=== PATIENT | female | born 1940 | race Caucasian/White ===

== ENCOUNTER 2019-03-15 06:54 | Outpatient (CLI) | payer MEDICARE, SELFPAY ==
--- NOTE | 2019-03-15 08:15 | MERGEMPI_ITS ---
*[facility]* *[facility]* [address] [place] [address] Myocardial Perfusion Imaging - SPECT Regadenoson Date of study: 03/15/2019 *PATIENT PRESENTATION* Height: 154.9cm (61in) Blood Pressure: Weight: 92.3kg (203lb) BSA: 2.04m^2 Referring physician: Christian Resendiz Ordering physician: Arlette Mittal Impressions: Study suggests recent inferior myocardial infarction with mabel-infarct ischemia, with small to moderate overall ischemia in the territory of the right coronary or the left circumflex coronary arteries. Summary: 1. Myocardial perfusion imaging: There is a large sized, severely intense, partially reversible defect involving the inferior, inferolateral, and anterolateral wall(s). This suggests large myocardial infarction and small ischemia in the distribution of right coronary artery or the left circumflex coronary artery. 2. The calculated left ventricular ejection fraction after stress: 41%. LV global systolic function is mild to moderately reduced. There is dyskinesis involving the inferior wall(s) of the left ventricle. 3. Stress ECG conclusions: The stress ECG is positive. 4. Baseline ECG: There was a recentinferior myocardial infarction. Recommendations: Cardiac catheterization should be performed in 24hr, in order to evaluate coronary artery disease. This procedure has been arranged and discussed with the patient. Indication: R07.9. History: REASON FOR VISIT: PT REPORTS SHE IS HERE FOR HIGH BLOOD PRESSURES AND EKG CHANGES NOTED BY HER PCP, DR Ankita MITTAL IN IN HER [facility] OFFICE. UPON FURTHER QUESTIONING, PT REPORTS A 7 OUT OF 10 LEFT CHEST PAIN AND PAIN INBETWEEN HER SHOULDER BLADES. SHE STATES THIS PAIN HAS BEEN CONSTANT ALL MORNING AND SHE ALSO FELT SOME NAUSEA WITH HER CHEST PAINS WHILE IN THE WAITING ROOM THIS AM. SHE DESCRIBES IT A ACHE OR PRESSURE. SHE DENIES SHORTNES OF BREATH. SHE STATES HER CHEST PAINS HAVE STARTED ABOUT 2 WEEKS AGO. PMH: Asthma. Risk factors: Family history of coronary artery disease. Hypertension. Obesity. Dyslipidemia. ALLERGIES: AMOXICILLIN. ASPIRIN. LISINOPRIL. NORVASC. MEDICATIONS: ASPIRIN 81 MG DAILY. CLINDAMYCIN HCL 150 MG PRIOR TO DENTAL WORK. FLOVENT HFA 2 PUFFS DAILY. PRN. HYDROCHLOROTHIAZIDE 25 MG DAILY. LOSARTAN 25 MG DAILY. MECLIZINE 25 MG TID. FEXOFENADINE 180 MG DAILY. CELEBREX 200 MG DAILY. MELOXICAM 15 MG DAILY. OMEPRAZOLE 20 MG TAKE 2 CAPSULES AT BEDTIME. PRESERVISION LUTEIN 1 CAPSULE TWICE A DAY. TUMS E-X 750 MG DAILY PRN. VIACTIV 1 TAB DAILY. XOPENEX HFA 2 PUFFS DAILY PRN. Imaging Technique: Protocol: Regadenoson. Acquisition: Gated SPECT; 1 day - rest/stress. The patient was imaged in the supine position. Attenuation correction used. Isotope administration: - Rest. Tc[99m]-sestamibi. Dose: 10.5mCi. Injection time: 08:15 AM. Injection to stress time: 00:45. - Stress. Tc[99m]-sestamibi. Dose: 30mCi. Injection time: 11:15 AM. 1-2 min before end of exercise Baseline ECG: SINUS RHYTHM. HR [address] ELEVATIONS IN LEADS III. Normal sinus rhythm. Q waves in II, III and aVF. ST elevation in II, III and aVF, consistent with injury. There was a recentinferior myocardial infarction. Stress protocol: +--------+---+ + + !Stage !HR !BP (mmHg) !Comments ! +--------+---+ + + !Baseline!93 !138/80 (99)! ! +--------+---+ + + !1 min !112!144/60 (88)!Inject Regadenoson.! +--------+---+ + + !3 min !112!144/72 (96)! ! +--------+---+ + + !6 min !98 !136/74 (95)! ! +--------+---+ + + !10 min !110!138/80 (99)! ! +--------+---+ + + * Stress results: The rate-pressure product for the peak heart rate and blood pressure was 51069ki Hg/min. Stress ECG: STRESS TEST ENDED IN 14 MINUTES & 49 SECONDS. NORMAL HEART RATE AND BLOOD PRESSURE RESPONSE TO LEXISCAN INJECTION OCCASIONAL PVCs ST SEGMENT ELEVATION IN LEAD III PRIOR TO LEXISCAN INJECTION, DR RESENDIZ UPDATED. CHEST PAIN 7 OUT OF 10 PRIOR TO LEXISCAN INJECTION, DR RESENDIZ UPDATED. ST SEGMENT ELEVATION MORE PRONOUNCED IN LEAD III AND NOW NOTED IN ALL INFERIOR LEADS (II, III & AVF) 3-6 [address]ES [address] L[address] INJECTION. [address] SEGMENT DEPRESSIONS NOTED IN LEADS AVL & V2 MOST PRONOUNCED BY 6 MINUTES POST LEXISCAN. CHEST PAIN INCREASED TO A 10 OUT OF 10 BY 8 MINUTES POST LEXISCAN INJECTION. NITRO 1 TAB SUB LINGUAL GIVEN. DR RESENDIZ UPDATED. CHEST PAIN SUBSIDING, PT REPORTS ITS DOWN TO A 5 OUT OF 10 SHE LOCATES CENTER TO LEFT CHEST AND AXILLA REGION. DR RESENDIZ UPDATED, PT SENT BACK FOR 2ND IMAGING, PER DR RESENDIZ. The stress ECG is positive. Myocardial perfusion: Imaging information: gated. The image quality was good. Left ventricular size is normal. Right ventricular size is normal. There is a large sized, severely intense, partially reversible defect involving the inferior, inferolateral, and anterolateral wall(s). This suggests large myocardial infarction and small ischemia in the distribution of right coronary artery or the left circumflex coronary artery. Ventricular Function (Wall Motion): The calculated left ventricular ejection fraction after stress: 41%. LV global systolic function is mild to moderately reduced. There is dyskinesis involving the inferior wall(s) of the left ventricle. Right ventricular function is normal. Study data: Christian Resendiz MD supervised and was readily available during the procedure. This study was interpreted by [facility]. Study status: Routine. Consent: The risks, benefits, and alternatives to the procedure were explained to the patient and informed consent was obtained. Procedure: Initial setup. A baseline ECG was recorded. Surface ECG leads and manual cuff blood pressure measurements were monitored. Heart sounds: Normal. Lung sounds: Normal. Regadenoson stress test. Stress testing was performed, with regadenoson by intravenous bolus, for a total dose of 0.4mgover 10.00sec, followed by a 5ml saline flush. The infusion was terminated due to per protocol. Study completion: All catheters inserted during the procedure were removed. The patient tolerated the procedure well and was discharged from the lab. Discharge: The patient left the laboratory in stable condition. Birthdate: Patient birthdate: 1940. Sex: Gender: female. Study date: Study date: 03/15/2019. Study time: 00:01 AM. Signature Documentation: - The imaging portion of this study was interpreted by [facility] Christian Resendiz MD. - The Stress ECG portion of this study was interpreted by Christian Resendiz MD. Electronically signed by Christian Resendiz 03/15/2019 13:06
[2019-03-15] MEDS: Regadenoson 0.4 MG/5 ML SYR IVP (11:30)
== END 2019-03-15 07:14 ==
PROVIDERS: PCP Internal Medicine; Visit Provider Internal Medicine
DX: R07.9 Chest pain, unspecified (principal); R94.31 Abnormal electrocardiogram [ECG] [EKG]; I25.2 Old myocardial infarction; I10 Essential (primary) hypertension; Z82.49 Family history of ischemic heart disease and other diseases of the circulatory system
CPT/HCPCS: 36415; 78452; 80053; 93005; 93016; 93018; 96365; 96366; 96368; 96375; 96376; 99205; 99285; 71045; 83735; 83880; 84484; 85025; 85610; 85730; 93017; 99284; J2060; J2785

== ENCOUNTER 2019-03-15 13:04 | Emergency (ER) | payer MEDICARE, SELFPAY ==
[2019-03-15] VITALS (69 sets, daily range): BP systolic 87–158; BP diastolic 44–80; PULSE 49–99; RESP 15–26; TEMP 36.4; O2SAT 89–99
--- NOTE | 2019-03-15 13:11 | W.ED.GENAD ---
Discharge Plan Disposition Patient Disposition: [facility] Condition: Serious Discharge Details Chief Complaint: Chest Pain Clinical Impression: Acute coronary syndrome Primary Care Provider: DARLING JONES ED Provider: Eb Salazar Home Meds and New Rx's Prescriptions: No Action fexofenadine 180 MG tablet 180 mg PO DAILY RF: 0 omeprazole 40 MG capsule,delayed release(DR/EC) 40 mg PO DAILY RF: 0 hydrochlorothiazide 25 MG tablet 25 mg PO DAILY RF: 0 albuterol sulfate 8.5 GM HFA aerosol inhaler 2 puff Inhalation Q6H PRN RF: 0 Flovent HFA 12 GM HFA aerosol inhaler 110 mcg Inhalation BID RF: 0 calcium carb and citrate-vitD3 1 EACH tablet extended release 1 ea PO DAILY RF: 0 losartan 50 mg Tablet 50 mg PO DAILY AM RF: 0 fluticasone propionate 50 mcg/actuation [place],Suspension 2 spray Intranasal BID RF: 0 Medical Decision Making 79-year-old female referred from outpatient nuclear stress test by Dr. Resendiz due to acute reversible ischemic changes and ongoing chest pain during the test. She has a history of hypertension and hyperlipidemia, and reports 2 weeks of intermittent episodes of substernal chest discomfort that has been occurring at rest. She arrives with ongoing discomfort, positive EKG changes. She is placed on a registered travel nurse, IV access established, patient referred for laboratory testing, chest x-ray, given 162 mg aspirin, nitroglycerin drip initiated for ongoing discomfort. After review of x-ray, patient started on heparin bolus and drip. Plavix given Screening chest x-ray without acute finding per Dr. Pitt. Laboratory analysis does reveal positive troponin of 3.69. Labs otherwise notable for creatinine of 1.4. Her magnesium is low at 1.1 and will be supplemented. We will ask that perfusion scan be uploaded to [facility]. Case discussed with on-call cardiology Dr. Helton, and patient accepted in transfer. MYOCARDIAL PERFUSION SCAN: Impressions: Study suggests recent inferior myocardial infarction with mabel-infarct ischemia, with small to moderate overall ischemia in the territory of the right coronary or the left circumflex coronary arteries. Summary: 1. Myocardial perfusion imaging: There is a large sized, severely intense, partially reversible defect involving the inferior, inferolateral, and anterolateral wall(s). This suggests large myocardial infarction and small ischemia in the distribution of right coronary artery or the left circumflex coronary artery. 2. The calculated left ventricular ejection fraction after stress: 41%. LV global systolic function is mild to moderately reduced. There is dyskinesis involving the inferior wall(s) of the left ventricle. 3. Stress ECG conclusions: The stress ECG is positive. 4. Baseline ECG: There was a recentinferior myocardial infarction. Recommendations: Cardiac catheterization should be performed in 24hr, in order to evaluate coronary artery disease. This procedure has been arranged and discussed with the patient. Lab Data Lab results reviewed: Yes I reviewed the patient's lab results. Laboratory Results - last 24 hr 03/15/19 03/15/19 03/15/19 13:17 13:17 13:17 WBC 7.76 RBC 4.18 Hgb 12.9 Hct 39.3 MCV 94.0 MCH 30.9 MCHC 32.8 RDW 13.4 Plt Count 303 MPV 10.0 Immature Gran % 0.3 Neutrophils % 72.8 Lymphocytes % 17.7 Monocytes % 8.2 Eosinophils % 0.6 Basophils % 0.4 Absolute Neutrophils 5.65 Absolute Lymphocytes 1.37 Absolute Monocytes 0.64 Absolute Eosinophils 0.05 Absolute Basophils 0.03 PT 9.3 INR 0.9 APTT 24.5 Sodium 140 Potassium 3.1 L Chloride 100 Carbon Dioxide 31.3 Anion Gap 8.7 BUN 26 H Creatinine 1.44 H Estimated GFR/1.73 m2 35.11 Glucose 133 H Calcium 10.6 H Magnesium 1.1 L Total Bilirubin 0.5 AST 48 H ALT 26 Alkaline Phosphatase 69 Troponin I 3.69 H* NT-Pro-B Natriuret Pep 2186 H Total Protein 8.0 Albumin 3.8 ECG Data Attestation: I personally reviewed and interpreted this ECG (s) as follows: Interpretation: Normal sinus rhythm with a rate of 91, there is inferior ST segment elevation with ST segment depression in leads I and aVL EKG #2 obtained at 1413 hrs. normal sinus rhythm with a rate of 76, the QRS is narrow, there is [address] segment elevation with T wave inversions. Subtle ST depressions in 1 and aVL HPI General Mode of arrival: ambulatory. Date/Time Provider Initiated Documentation: 03/15/19 13:05. Limitations to Documentation: no limitations. Information obtained by: patient. History of Present Illness 79 year old F presents to the emergency department with the chief complaint of Referred from outpatient nuclear stress test that was + and with chest pain, described as moderate, Quality is described as dull, and is localized to the chest. Patient started experiencing this minute(s) and it has been intermittent. No relieving factors improve symptom(s), No exacerbating factors reported . Patient notes other (Feels anxious). Patient did receive the following treatments prior to arrival, other (Received a single nitroglycerin prior to stress test) Related Data Home Medications Medication Instructions Recorded Confirmed albuterol sulfate 2 puff INHALATION Q6H PRN inhaler 03/12/15 03/15/19 NS calcium carb and citrate-vitD3 1 ea PO DAILY NS 03/12/15 03/15/19 fexofenadine 180 mg PO DAILY tab-cap NS 03/12/15 03/15/19 fluticasone propionate [Flovent 110 mcg INHALATION BID inhaler NS 03/12/15 03/15/19 110mcg] hydrochlorothiazide 25 mg PO DAILY tab-cap NS 03/12/15 03/15/19 omeprazole 40 mg PO DAILY tab-cap NS 03/12/15 03/15/19 fluticasone propionate 2 spray INTRANASAL BID 03/15/19 03/15/19 losartan 50 mg PO DAILY AM 03/15/19 03/15/19 Allergies Allergy/AdvReac Type Severity Reaction Status Date / Time amlodipine besylate Allergy Unverified 03/15/19 13:24 [From [facility]] amoxicillin Allergy Unverified 03/15/19 13:24 lisinopril Allergy Unverified 03/15/19 13:24 Review of Systems Review of Systems 8 systems reviewed and otherwise negative [facility] Medical History Asthma Atypical migraine GERD (gastroesophageal reflux disease) Goiter Hyperlipidemia Hypertension Insomnia Macular degeneration Social History Smoking/Tobacco Use Status: Never Substance use type: does not use Do you feel safe at home: Yes Do you feel safe in your relationship?: Yes Exam Narrative Exam Narrative: GEN: awake, alert, oriented 3. Pleasant, well groomed, interactive. HEAD: Normocephalic, atraumatic ENT: Mucous membranes moist, oropharynx unremarkable, External ear exam unremarkable EYES: PERRL, EOMI NECK: Full ROM, no JOAQUINA, no menigismus CHEST/RESP: Nontender, clear to auscultation bilateral, no wheeze/rhonchi/rales CARDIOVASCULAR: RRR, no murmur, rub peggy. 2+ Rad pulse bilateral ABDOMEN: Soft, nontender, no mass. +Bowel sounds EXT: Full ROM, no edema, no rash Neuro: Grossly normal neurologic exam, conversant, interactive. Psych: Speech fluent, thoughts congruent, affect normal
--- NOTE | 2019-03-15 13:14 | ED.GENADUL_ITS ---
Discharge Plan Disposition Patient Disposition: [facility] Condition: Serious Discharge Details Chief Complaint: Chest Pain Clinical Impression: Acute coronary syndrome Primary Care Provider: DARLING JONES ED Provider: Eb Salazar Home Meds and New Rx's Prescriptions: No Action fexofenadine 180 MG tablet 180 mg PO DAILY RF: 0 omeprazole 40 MG capsule,delayed release(DR/EC) 40 mg PO DAILY RF: 0 hydrochlorothiazide 25 MG tablet 25 mg PO DAILY RF: 0 albuterol sulfate 8.5 GM HFA aerosol inhaler 2 puff Inhalation Q6H PRN RF: 0 Flovent HFA 12 GM HFA aerosol inhaler 110 mcg Inhalation BID RF: 0 calcium carb and citrate-vitD3 1 EACH tablet extended release 1 ea PO DAILY RF: 0 losartan 50 mg Tablet 50 mg PO DAILY AM RF: 0 fluticasone propionate 50 mcg/actuation [place],Suspension 2 spray Intranasal BID RF: 0 Medical Decision Making 79-year-old female referred from outpatient nuclear stress test by Dr. Resendiz due to acute reversible ischemic changes and ongoing chest pain during the test. She has a history of hypertension and hyperlipidemia, and reports 2 weeks of intermittent episodes of substernal chest discomfort that has been occurring at rest. She arrives with ongoing discomfort, positive EKG changes. She is placed on a clay transporter, IV access established, patient referred for laboratory testing, chest x-ray, given 162 mg aspirin, nitroglycerin drip initiated for ongoing discomfort. After review of x-ray, patient started on heparin bolus and drip. Plavix given Screening chest x-ray without acute finding per Dr. Pitt. Laboratory analysis does reveal positive troponin of 3.69. Labs otherwise notable for creatinine of 1.4. Her magnesium is low at 1.1 and will be supplemented. We will ask that perfusion scan be uploaded to [facility]. Case discussed with on-call cardiology Dr. Helton, and patient accepted in transfer. MYOCARDIAL PERFUSION SCAN: Impressions: Study suggests recent inferior myocardial infarction with mabel-infarct ischemia, with small to moderate overall ischemia in the territory of the right coronary or the left circumflex coronary arteries. Summary: 1. Myocardial perfusion imaging: There is a large sized, severely intense, partially reversible defect involving the inferior, inferolateral, and anterolateral wall(s). This suggests large myocardial infarction and small ischemia in the distribution of right coronary artery or the left circumflex coronary artery. 2. The calculated left ventricular ejection fraction after stress: 41%. LV global systolic function is mild to moderately reduced. There is dyskinesis involving the inferior wall(s) of the left ventricle. 3. Stress ECG conclusions: The stress ECG is positive. 4. Baseline ECG: There was a recentinferior myocardial infarction. Recommendations: Cardiac catheterization should be performed in 24hr, in order to evaluate coronary artery disease. This procedure has been arranged and discussed with the patient. Lab Data Lab results reviewed: Yes I reviewed the patient's lab results. Laboratory Results - last 24 hr 03/15/19 03/15/19 03/15/19 13:17 13:17 13:17 WBC 7.76 RBC 4.18 Hgb 12.9 Hct 39.3 MCV 94.0 MCH 30.9 MCHC 32.8 RDW 13.4 Plt Count 303 MPV 10.0 Immature Gran % 0.3 Neutrophils % 72.8 Lymphocytes % 17.7 Monocytes % 8.2 Eosinophils % 0.6 Basophils % 0.4 Absolute Neutrophils 5.65 Absolute Lymphocytes 1.37 Absolute Monocytes 0.64 Absolute Eosinophils 0.05 Absolute Basophils 0.03 PT 9.3 INR 0.9 APTT 24.5 Sodium 140 Potassium 3.1 L Chloride 100 Carbon Dioxide 31.3 Anion Gap 8.7 BUN 26 H Creatinine 1.44 H Estimated GFR/1.73 m2 35.11 Glucose 133 H Calcium 10.6 H Magnesium 1.1 L Total Bilirubin 0.5 AST 48 H ALT 26 Alkaline Phosphatase 69 Troponin I 3.69 H* NT-Pro-B Natriuret Pep 2186 H Total Protein 8.0 Albumin 3.8 ECG Data Attestation: I personally reviewed and interpreted this ECG (s) as follows: Interpretation: Normal sinus rhythm with a rate of 91, there is inferior ST segment elevation with ST segment depression in leads I and aVL EKG #2 obtained at 1413 hrs. normal sinus rhythm with a rate of 76, the QRS is narrow, there is [address] segment elevation with T wave inversions. Subtle ST depressions in 1 and aVL HPI General Mode of arrival: ambulatory . Date/Time Provider Initiated Documentation: 03/15/19 13:05 . Limitations to Documentation: no limitations . Information obtained by: patient . History of Present Illness 79 year old F presents to the emergency department with the chief complaint of Referred from outpatient nuclear stress test that was + and with chest pain, described as moderate, Quality is described as dull, and is localized to the chest. Patient started experiencing this minute(s) and it has been intermittent. No relieving factors improve symptom(s), No exacerbating factors reported . Patient notes other (Feels anxious). Patient did receive the following treatments prior to arrival, other (Received a single nitroglycerin prior to stress test) Related Data Home Medications Medication Instructions Recorded Confirmed albuterol sulfate 2 puff INHALATION Q6H PRN inhaler 03/12/15 03/15/19 NS calcium carb and citrate-vitD3 1 ea PO DAILY NS 03/12/15 03/15/19 fexofenadine 180 mg PO DAILY tab-cap NS 03/12/15 03/15/19 fluticasone propionate [Flovent 110 mcg INHALATION BID inhaler NS 03/12/15 03/15/19 110mcg] hydrochlorothiazide 25 mg PO DAILY tab-cap NS 03/12/15 03/15/19 omeprazole 40 mg PO DAILY tab-cap NS 03/12/15 03/15/19 fluticasone propionate 2 spray INTRANASAL BID 03/15/19 03/15/19 losartan 50 mg PO DAILY AM 03/15/19 03/15/19 Allergies Allergy/AdvReac Type Severity Reaction Status Date / Time amlodipine besylate Allergy Unverified 03/15/19 13:24 [From [facility]] amoxicillin Allergy Unverified 03/15/19 13:24 lisinopril Allergy Unverified 03/15/19 13:24 Review of Systems Review of Systems 8 systems reviewed and otherwise negative [facility] Medical History Asthma Atypical migraine GERD (gastroesophageal reflux disease) Goiter Hyperlipidemia Hypertension Insomnia Macular degeneration Social History Smoking/Tobacco Use Status: Never Substance use type: does not use Do you feel safe at home: Yes Do you feel safe in your relationship?: Yes Exam Narrative Exam Narrative: GEN: awake, alert, oriented 3. Pleasant, well groomed, interactive. HEAD: Normocephalic, atraumatic ENT: Mucous membranes moist, oropharynx unremarkable, External ear exam unremarkable EYES: PERRL, EOMI NECK: Full ROM, no JOAQUINA, no menigismus CHEST/RESP: Nontender, clear to auscultation bilateral, no wheeze/rhonchi/rales CARDIOVASCULAR: RRR, no murmur, rub peggy. 2+ Rad pulse bilateral ABDOMEN: Soft, nontender, no mass. +Bowel sounds EXT: Full ROM, no edema, no rash Neuro: Grossly normal neurologic exam, conversant, interactive. Psych: Speech fluent, thoughts congruent, affect normal
[2019-03-15 13:24] LABS: Abs Immature Grans 0.02 k/cumm (0.0-0.09); Absolute Basophil Count 0.03 k/cumm (0.0-0.2); Absolute Eosinophil Count 0.05 k/cumm (0.0-0.7); Absolute Lymphocyte Count 1.37 k/cumm (1.2-3.4); Absolute Monocyte Count 0.64 k/cumm (0.11-0.7); Absolute Neutrophil Count 5.65 k/cumm (1.2-6.7); Basophils % 0.4; Eosinophils % 0.6; HCT 39.3 % (36.0-46.0); HGB 12.9 g/dL (12.0-15.5); Immature Grans % 0.3; Lymphocytes % 17.7; Mean Corp. HGB Concentration 32.8 g/dL (32.0-36.0); Mean Corpuscular Hemoglobin 30.9 pg (27.0-33.0); Monocytes % 8.2; Neutrophils % 72.8; Platelet Count 303 x1000/uL (130-400); RBC 4.18 m/cumm (4.00-5.20); RBC Distribution Width 13.4 % (11.7-14.6); White Blood Cell Count 7.76 k/cumm (4.4-10.8)
[2019-03-15] MEDS: Aspirin 81 MG CHEW 162 MG PO (13:30)
--- NOTE | 2019-03-15 13:35 | DI.RAD_ITS ---
SYMPTOMS/DIAGNOSIS: CHEST PAIN PORTABLE AP CHEST: There is a marked scoliosis. The heart does not appear significantly enlarged. Minimal streaky perihilar radiodensities noted on the left, which are nonspecific, acute versus chronic. Right lung is grossly clear with some changes of scarring. CONCLUSION: Left perihilar patchy densities, acute versus chronic. Appropriate follow-up studies requested.
[2019-03-15 13:45] LABS: INR 0.9 (0.9-1.1); PTT Activated 24.5 sec (21.0-31.4); Prothrombin Time 9.3 sec (9.3-11.0)
[2019-03-15 13:46] LABS: ALT 26 U/L (12-78); AST 48 U/L (15-37); Albumin 3.8 g/dL (3.4-5.0); Alkaline Phosphatase 69 U/L (46-116); Anion Gap 8.7 mmol/L (3-11); BUN 26 mg/dL (7-18); Bilirubin, Total 0.5 mg/dL (0.2-1.0); CO2 31.3 mmol/L (21.0-32.0); CREATININE 1.44 mg/dL (0.55-1.02); Calcium 10.6 mg/dL (8.5-10.1); Chloride 100 mmol/L (98-107); Estimated GFR 35.11 (mL/min/1.73m2); Glucose 133 mg/dL (70-100); Magnesium 1.1 mg/dL (1.8-2.4); NT-proBNP 2186 pg/mL; Potassium 3.1 mmol/L (3.5-5.1); Sodium 140 mmol/L (136-145)
[2019-03-15 13:54] LABS: Troponin I 3.69 ng/mL (0.00-0.06)
[2019-03-15] MEDS: LORazepam 2 MG/ML VIAL 0.5 MG IVP (13:59)
[2019-03-15] MEDS: Clopidogrel 300 MG TAB PO (14:48)
[2019-03-15] MEDS: POTASSIUM CHLORIDE/0.9% NACL 1,000 ML 100 MEQ IV (14:48)
[2019-03-15] MEDS: MAGNESIUM SULFATE 2 GM/50 ML BAG IVPB (14:50)
--- NOTE | 2019-03-15 15:26 | NUR.NOTE ---
pt felt better after the NTG was initiated and running at 10 mcg/min but still had some pain . Ntg was increased to 15 at approx 1500 and her blood pressure dropped to 88 /40. she was placed in a supine position and given a 100 cc bolus of NS physician notified. she was c/o increased discomfort . NTG was placed back on at 10 MCG min. pt tolerating well. after 15. minNursing Note:
== END 2019-03-15 16:52 ==
PROVIDERS: Emergency Provider Emergency Medicine; PCP Internal Medicine
DX: I24.9 Acute ischemic heart disease, unspecified (principal); I10 Essential (primary) hypertension
CPT/HCPCS: 36415; 80053; 93005; 96365; 96366; 96368; 96375; 96376; 99285; 71045; 83735; 83880; 84484; 85025; 85610; 85730; 93010; 99284; J2060